=== PATIENT | male | born 1965 ===

== ENCOUNTER 2020-05-09 07:27 | Day surgery (SDC) | payer BC ==
[~2020-05-09 07:27] MED LIST: Dextrose 5%-0.45% NaCl 1,000 ML IV SCH; Midazolam 1 MG/ML 2 ML SDV ONE; fentaNYL 100 MCG/2 ML SDV ONE
[2020-05-09] MEDS ORDERED: fentaNYL 100 MCG/2 ML SDV IV ONE ×3 (07:28→08:21)
[2020-05-09] MEDS ORDERED: Midazolam 1 MG/ML 2 ML SDV IV ONE ×5 (07:28→08:25)
--- NOTE | 2020-05-09 09:53 | OR ---
DATE: 05/09/2020 PREOPERATIVE DIAGNOSIS: Screening colonoscopy. POSTOPERATIVE DIAGNOSIS: Screening colonoscopy. PROCEDURE: Total colonoscopy. ANESTHESIA: Conscious sedation with IV Versed and fentanyl. SPECIMEN: None. FINDINGS: Normal colonoscopy. INDICATION FOR PROCEDURE: This 54-year-old male presents for screening colonoscopy. PROCEDURE IN DETAIL: After adequate preparation, a colonoscope was inserted into the rectum. This was easily passed all the way to the cecum. Confirmation of the cecum was made by visualization of the ileocecal valve, the appendiceal opening, and palpation in the right lower quadrant. The bowel prep was good. On withdrawal of the scope, no abnormalities were noted. Anal and rectal examinations are also normal. Air was suctioned from the colon and the scope removed. [facility] /[id number]
== END 2020-05-09 09:48 | disposition home or self-care (01) ==
LOC: DL.ENDO 07:27
PROVIDERS: ATTEND Surgery
DX: Z12.11 Encounter for screening for malignant neoplasm of colon (principal); I10 Essential (primary) hypertension; Z86.2 Personal history of diseases of the blood and blood-forming organs and certain disorders involving the immune mechanism; Z79.899 Other long term (current) drug therapy
CPT/HCPCS: 45378; J2250; J3010; J7042